=== PATIENT | male | born 1960 | race Two or more races ===

== ENCOUNTER → 2023-07-30 08:00 | Outpatient (CLI) | payer OTHER ==
[~2023-07-30] VITALS: Ht 182.9 cm; Wt 79.8 kg
[~2023-07-30 08:00] MED LIST: ATORVASTATIN CA10 MG PO; HYDRODIURIL12.5 MG PO
[2023-07-30 08:25] LABS: PH,URINE 5.5 (5.0-8.0); URINE APPEARANCE Clear; URINE BILIRRUBIN Negative (NEGATIVE); URINE BLOOD Negative; URINE COLOR Yellow; URINE GLUCOSE Negative (NEGATIVE); URINE LEUKOCYTE Negative; URINE NITRATE Negative; URINE PROTEIN Negative (NEGATIVE); URINE UROBILINOGEN 0.2 E.U./dl
[2023-07-30 08:26] LABS: URINE RBC 13.5 uL (0.0-20.8)
[2023-07-30 08:30] LABS: HEMOGLOBIN 15.1 g/dL (13-16.00); MEAN CELL VOLUME 81.4 fL (80.0-100.00); MEAN CORPUSCULAR HEMOGLOBIN 27.3 pg (27.00-32.0); MEAN CORPUSCULAR HGB CONC 33.5 g/dl (32.0-36.0); PLATELET COUNT 322 K/uL (150-450); RED BLOOD COUNT 5.52 M/uL (4.00-6.00); RED CELL DISTRIBUTION WIDTH 14.5 % (11.5-14.5)
[2023-07-30 08:34] LABS: URINE EPITHELIAL CELLS 1.2 uL (0.0-38.8)
[2023-07-30 09:05] LABS: ALBUMIN 4.1 gm/dL (3.4-5.0); BILIRUBIN TOTAL 1.67 mg/dL (0.3-1.2); CREATININE SERUM 0.94 mg/dL (0.70-1.30); GFR 81.32; GLOBULINA 3.7 G/DL (2.4-3.5); POTASSIUM 4.67 mEq/L (3.5-5.1); TOTAL PROTEIN 7.8 gm/dL (6.4-8.2)
[2023-07-30 09:06] LABS: INR 0.98; PARTIAL THROMBOPLASTIN TIME 30.6 SECONDS (22.0-34.0); PROTHROMBIN TIME 10.3 SECONDS (9.0-11.5)
== END | disposition home or self-care (01) ==
LOC: ADM 07:30 → LAB 08:00 → EDSTATUS 08-11 07:30 → CIR.AMB 08-11 07:30
PROVIDERS: ATTEND Surgery
DX: K80.20 Calculus of gallbladder without cholecystitis without obstruction (principal)